=== PATIENT | female | born 1995 | race American Indian/Alaskan Native ===

== ENCOUNTER 2017-07-31 23:55 | Emergency (ER) | payer OTHER ==
[2017-08-01 00:17] VITALS: BP 111/75
[2017-08-01 02:32] LABS: Bacteria,Urine 3+ /HPF (Negative); Bilirubin,Urine NEG (Negative); Blood,Urine NEG (Negative); Color,Urine Yellow (Yellow); Mucus,Urine FEW /HPF; Protein,Urine <15 mg/dL mg/dL (Negative)
[2017-08-01 02:41] LABS: HCG Qualitative,Urine Negative (Negative)
[2017-08-01] MEDS ORDERED: NORCO 7.5/325 PO ONE (03:35)
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
== END 2017-08-01 04:43 | disposition home or self-care (01) ==
LOC: ED 23:55
DX: S32.040A Wedge compression fracture of fourth lumbar vertebra, initial encounter for closed fracture (principal); V89.2XXA Person injured in unspecified motor-vehicle accident, traffic, initial encounter; Y93.89 Activity, other specified; Y92.89 Other specified places as the place of occurrence of the external cause; Y99.8 Other external cause status
CPT/HCPCS: 72100; 81001; 81025; 99284